=== PATIENT | female | born 1975 | race Hispanic/Latino ===

== ENCOUNTER 2022-06-23 20:46 | Emergency (ER) | payer SELFPAY ==
[2022-06-23] MEDS ORDERED: Ibuprofen 800 MG TAB ONE (21:44)
== END 2022-06-23 21:58 | disposition home or self-care (01) ==
LOC: ERS 20:46
DX: M25.531 Pain in right wrist (principal); I10 Essential (primary) hypertension; E11.9 Type 2 diabetes mellitus without complications; Z79.84 Long term (current) use of oral hypoglycemic drugs; Z79.899 Other long term (current) drug therapy